=== PATIENT | male | born 1970 | race Caucasian/White ===

== ENCOUNTER 2024-01-17 18:23 | Inpatient (IN) | payer MEDICAID ==
[~2024-01-17] VITALS: Ht 172.7 cm; Wt 114.3 kg
[2024-01-17 18:26] VITALS: BP_SYST 154; PULSE 100; RESP 20; TEMP 100; O2SAT 98
[2024-01-17] MEDS: PIPERACILLIN/TAZO 3.375 GM in NS 50 ML IV ONE (18:51)
[2024-01-17] MEDS ORDERED: PIPERACILLIN/TAZOBACTAM 3.375 GM/VIAL (ZOSYN) IV ONE (18:52)
[2024-01-17] MEDS ORDERED: GABA-529 PO (18:53)
[2024-01-17] MEDS ORDERED: FOLI-43 PO (18:53)
[2024-01-17] MEDS ORDERED: FERR-69 PO (18:53)
[2024-01-17] MEDS ORDERED: NA P133E41 RC (18:53)
[2024-01-17] MEDS ORDERED: ASCO500T20 PO (18:53)
[2024-01-17] MEDS ORDERED: ACET325T PO (18:53)
[2024-01-17] MEDS ORDERED: BISA10SU61 RC (18:53)
[2024-01-17] MEDS ORDERED: LIP40 PO (18:53)
[2024-01-17] MEDS ORDERED: CLOP75TA32 PO (18:53)
[2024-01-17] MEDS ORDERED: FOLI0.8T42 PO (18:53)
[2024-01-17] MEDS ORDERED: HYDR12.585 PO (18:53)
[2024-01-17] MEDS ORDERED: TRAM50TA2 PO (18:53)
[2024-01-17] MEDS ORDERED: NIFE-129 PO (18:53)
[2024-01-17] MEDS ORDERED: ESCI10TA PO (18:53)
[2024-01-17] MEDS ORDERED: SUCR500T PO (18:53)
[2024-01-17] MEDS ORDERED: FAMO20TA8 PO (18:53)
[2024-01-17] MEDS ORDERED: CHOL30SP SL (18:53)
[2024-01-17] MEDS ORDERED: DEC1 PO (18:53)
[2024-01-17 19:13] LABS: BLOOD GAS PCO2 40.7 mmHg (32.0-45.0); BLOOD GAS PH 7.478 (7.350-7.450)
[2024-01-17 19:14] LABS: ABG O2 SAT% ESTIMATE 89.1 % (94.0-100.0); ALLEN'S TEST POSITIVE (P); BLOOD GAS BASE EXCESS 5.5 mmol/L (-3.0-3.0); BLOOD GAS HCO3 29.5 mmol/L (21.0-27.0)
[2024-01-17 19:20] LABS: BASOPHILS % (AUTO) 0.2 % (0.0-2.0); EOSINOPHILS % (AUTO) 0.2 % (0.0-4.0); HEMATOCRIT 31.5 % (36-54); HEMOGLOBIN 11.1 g/dL (14.0-18.0); LYMPHOCYTES # (AUTO) 0.7 K/uL (1.0-5.5); LYMPHOCYTES % (AUTO) 4.6 % (20.5-51.5); MEAN CORPUSCULAR HEMOGLOBIN 32 pg (27-31); MEAN CORPUSCULAR HGB CONC 35 % (32-36); MEAN CORPUSCULAR VOLUME 92 fL (79.0-98.0); MONOCYTES # (AUTO) 1.5 K/uL (0.0-1.0); MONOCYTES % (AUTO) 9.9 % (1.7-9.3); NEUTROPHILS # (AUTO) 13.2 K/uL (1.8-7.7); NEUTROPHILS % (AUTO) 85.1 % (40.0-70.0); PLATELET COUNT (AUTO) 464 K/uL (130-430); RED BLOOD CELL COUNT(AUTO) 3.43 MIL/uL (4.2-6.2); RED CELL DISTRIBUTION WIDTH 16.3 % (9.0-15.0); WHITE BLOOD COUNT (AUTO) 15.6 K/uL (4.8-10.8)
[2024-01-17 19:24] LABS: CALCIUM 10.3 mg/dL (8.4-11.0); CREATININE 4.58 mg/dL (0.55-1.30); POTASSIUM 4.3 mmol/L (3.5-5.1)
[2024-01-17 19:25] LABS: ERYTHROCYTE SEDIMENTATION RATE 92 MM/HR (0-15)
[2024-01-17 19:26] LABS: INR 1.1 (0.80-1.20); PROTHROMBIN TIME 10.9 SECS (9.5-12.5)
[2024-01-17 19:28] LABS: ALBUMIN 2.6 g/dL (3.4-4.8); BILIRUBIN,DIRECT 0.2 mg/dL (0.0-0.3); TOTAL BILIRUBIN 0.5 mg/dL (0.0-1.0); TOTAL PROTEIN, SERUM 7.8 g/dL (6.4-8.3)
[2024-01-17] MEDS: CLINDAMYCIN 600 mg/50mL D5W 50 ML IV ONE (19:56)
[2024-01-17] MEDS: NS 1,000 ML IV SCH (21:52)
[2024-01-18 01:47] VITALS: BP_SYST 139; PULSE 80; RESP 18; TEMP 97.9; O2SAT 100
[2024-01-18 05:59] LABS: BASOPHILS # (AUTO) 0.1 K/uL (0.0-0.2); BASOPHILS % (AUTO) 0.3 % (0.0-2.0); EOSINOPHILS % (AUTO) 0.1 % (0.0-4.0); HEMATOCRIT 31.3 % (36-54); HEMOGLOBIN 10.5 g/dL (14.0-18.0); LYMPHOCYTES # (AUTO) 1.1 K/uL (1.0-5.5); LYMPHOCYTES % (AUTO) 6.6 % (20.5-51.5); MEAN CORPUSCULAR HEMOGLOBIN 31 pg (27-31); MEAN CORPUSCULAR HGB CONC 34 % (32-36); MEAN CORPUSCULAR VOLUME 93 fL (79.0-98.0); MONOCYTES # (AUTO) 2.2 K/uL (0.0-1.0); MONOCYTES % (AUTO) 13.2 % (1.7-9.3); NEUTROPHILS % (AUTO) 79.8 % (40.0-70.0); PLATELET COUNT (AUTO) 462 K/uL (130-430); RED BLOOD CELL COUNT(AUTO) 3.37 MIL/uL (4.2-6.2); RED CELL DISTRIBUTION WIDTH 16.1 % (9.0-15.0); WHITE BLOOD COUNT (AUTO) 16.3 K/uL (4.8-10.8)
[2024-01-18 06:03] LABS: CALCIUM 10.4 mg/dL (8.4-11.0); CREATININE 5.39 mg/dL (0.55-1.30); POTASSIUM 4.3 mmol/L (3.5-5.1)
[2024-01-18 06:07] LABS: ALBUMIN 2.5 g/dL (3.4-4.8); TOTAL BILIRUBIN 0.5 mg/dL (0.0-1.0); TOTAL PROTEIN, SERUM 7.4 g/dL (6.4-8.3)
[2024-01-18] MEDS ORDERED: NALOXONE HCL 0.4 MG/ML AMP (NARCAN) IVP PRN (07:30)
[2024-01-18] MEDS ORDERED: MORPHINE 2 MG/ML INJ. SYRINGE IVP PRN (07:30)
[2024-01-18 07:45] VITALS: BP_SYST 150; PULSE 86; RESP 18; TEMP 96.7; O2SAT 92
[2024-01-18] MEDS: PIPERACILLIN/TAZOBACTAM 2.25 GM in NS 50 ML IV SCH (08:09)
[2024-01-18] MEDS: traMADol HCL HCL 50 MG TABLET (ULTRAM) PO PRN ×2 (09:15→23:44)
[2024-01-18 10:00] VITALS: O2SAT 98
[2024-01-18 11:05] VITALS: BP_SYST 117; PULSE 86; RESP 16; TEMP 98.2; O2SAT 94
[2024-01-18] MEDS: ASCORBIC ACID 500 MG TABLET PO ONE (11:51)
[2024-01-18] MEDS: NEPHROVITE, (FOLIC ACID/VITAMIN B COMP W-C 1 TAB) PO ONE (11:51)
[2024-01-18] MEDS: FERROUS SULFATE 325 MG TABLET.DR PO ONE (11:51)
[2024-01-18] MEDS: FOLIC ACID 1 MG TABLET PO ONE (11:52)
[2024-01-18] MEDS: CITALOPRAM HYDROBROMIDE 20 MG TABLET PO ONE (11:52)
[2024-01-18] MEDS: FAMOTIDINE 20 MG TABLET PO ONE (11:52)
[2024-01-18] MEDS: HYDROCHLOROTHIAZIDE 12.5 MG CAPSULE (HCTZ) PO ONE (11:54)
[2024-01-18] MEDS: NIFEdipine 30 MG TAB.ER.24 PO ONE (12:08)
[2024-01-18] MEDS: GABAPENTIN 100 MG CAPSULE PO SCH (13:24)
[2024-01-18 15:15] VITALS: BP_SYST 154; PULSE 84; RESP 16; TEMP 98; O2SAT 95
[2024-01-18] MEDS: CLOPIDOGREL BISULFATE 75 MG TABLET PO SCH (17:20)
[2024-01-18] MEDS: NACL 0.9% 1,000 ML IV SCH (17:42)
[2024-01-18 20:00] VITALS: BP_SYST 139; PULSE 78; RESP 18; TEMP 98.1; O2SAT 94
[2024-01-18] MEDS: NIFEdipine 30 MG TAB.ER.24 PO SCH (20:15)
[2024-01-18] MEDS: HYDROCHLOROTHIAZIDE 12.5 MG CAPSULE (HCTZ) PO SCH (20:16)
[2024-01-18] MEDS: ATORVASTATIN 20 MG TABLET PO SCH (20:16)
[2024-01-18] MEDS: BISACODYL 10 MG/SUPPOSITORY RC PRN (23:49)
[2024-01-19 00:33] VITALS: BP_SYST 157; PULSE 85; RESP 16; TEMP 98; O2SAT 95
[2024-01-19] MEDS: VANCOMYCIN HCL 1,500 MG in NS 250 ML IV ONE (05:11)
[2024-01-19] MEDS: VANCOMYCIN HCL 1000 MG/VIAL IV ONE (05:16)
[2024-01-19] MEDS: VANCOMYCIN HCL 500 MG/VIAL IV ONE (05:17)
[2024-01-19 05:43] LABS: CALCIUM 9.7 mg/dL (8.4-11.0); CREATININE 7.18 mg/dL (0.55-1.30); POTASSIUM 4.9 mmol/L (3.5-5.1)
[2024-01-19 07:26] LABS: BASOPHILS # (AUTO) 0.1 K/uL (0.0-0.2); BASOPHILS % (AUTO) 0.4 % (0.0-2.0); EOSINOPHILS # (AUTO) 0.2 K/uL (0.0-0.4); EOSINOPHILS % (AUTO) 0.9 % (0.0-4.0); HEMATOCRIT 30.8 % (36-54); LYMPHOCYTES # (AUTO) 1.6 K/uL (1.0-5.5); LYMPHOCYTES % (AUTO) 8.5 % (20.5-51.5); MEAN CORPUSCULAR HEMOGLOBIN 30 pg (27-31); MEAN CORPUSCULAR HGB CONC 32 % (32-36); MEAN CORPUSCULAR VOLUME 93 fL (79.0-98.0); MONOCYTES # (AUTO) 1.7 K/uL (0.0-1.0); NEUTROPHILS % (AUTO) 81.2 % (40.0-70.0); PLATELET COUNT (AUTO) 462 K/uL (130-430); RED CELL DISTRIBUTION WIDTH 16.1 % (9.0-15.0); WHITE BLOOD COUNT (AUTO) 18.4 K/uL (4.8-10.8)
[2024-01-19 08:00] VITALS: BP_SYST 142; PULSE 84; RESP 20; TEMP 98.2; O2SAT 92
[2024-01-19] MEDS: CITALOPRAM HYDROBROMIDE 20 MG TABLET PO SCH (09:29)
[2024-01-19] MEDS: ASCORBIC ACID 500 MG TABLET PO SCH (09:30)
[2024-01-19] MEDS: FOLIC ACID 1 MG TABLET PO SCH (09:30)
[2024-01-19] MEDS: FAMOTIDINE 20 MG TABLET PO SCH (09:31)
[2024-01-19] MEDS: NEPHROVITE, (FOLIC ACID/VITAMIN B COMP W-C 1 TAB) PO SCH (09:31)
[2024-01-19] MEDS: FERROUS SULFATE 325 MG TABLET.DR PO SCH (09:31)
[2024-01-19 10:38] VITALS: O2SAT 92
[2024-01-19 11:16] VITALS: BP_SYST 150; PULSE 85; RESP 16; TEMP 98.1; O2SAT 95
[2024-01-19 15:11] VITALS: BP_SYST 157; PULSE 81; RESP 16; TEMP 98.4; O2SAT 100
[2024-01-19] MEDS ORDERED: [UNRECOGNIZED DRUG - CODE] PO (15:28)
[2024-01-19] MEDS ORDERED: CHOL200075 PO (15:28)
[2024-01-19 17:34] VITALS: O2SAT 95
[2024-01-19] MEDS: CLOTRIMAZOLE/BETAMETHASONE 45 GM TOPICAL CREAM TP SCH (21:31)
[2024-01-20 08:10] VITALS: BP_SYST 145; PULSE 84; RESP 18; TEMP 97.4; O2SAT 97
[2024-01-20 09:52] VITALS: O2SAT 97
[2024-01-20 11:20] VITALS: BP_SYST 151; PULSE 82; RESP 16; TEMP 97; O2SAT 94
[2024-01-20 15:04] VITALS: BP_SYST 143; PULSE 86; RESP 17; TEMP 98.5; O2SAT 90
[2024-01-21 06:23] LABS: BASOPHILS # (AUTO) 0.1 K/uL (0.0-0.2); BASOPHILS % (AUTO) 0.5 % (0.0-2.0); EOSINOPHILS # (AUTO) 0.2 K/uL (0.0-0.4); EOSINOPHILS % (AUTO) 1.1 % (0.0-4.0); HEMATOCRIT 27.3 % (36-54); HEMOGLOBIN 9.2 g/dL (14.0-18.0); LYMPHOCYTES # (AUTO) 1.2 K/uL (1.0-5.5); MEAN CORPUSCULAR HEMOGLOBIN 31 pg (27-31); MEAN CORPUSCULAR HGB CONC 34 % (32-36); MEAN CORPUSCULAR VOLUME 92 fL (79.0-98.0); MONOCYTES # (AUTO) 1.6 K/uL (0.0-1.0); MONOCYTES % (AUTO) 8.3 % (1.7-9.3); NEUTROPHILS # (AUTO) 16.6 K/uL (1.8-7.7); NEUTROPHILS % (AUTO) 84.1 % (40.0-70.0); PLATELET COUNT (AUTO) 483 K/uL (130-430); RED BLOOD CELL COUNT(AUTO) 2.95 MIL/uL (4.2-6.2)
[2024-01-21 06:39] LABS: CALCIUM 9.5 mg/dL (8.4-11.0); CREATININE 6.52 mg/dL (0.55-1.30)
[2024-01-21 07:46] LABS: WHITE BLOOD COUNT (AUTO) 19.7 K/uL (4.8-10.8)
[2024-01-21 08:00] VITALS: BP_SYST 141; PULSE 85; RESP 18; TEMP 98.8; O2SAT 94
[2024-01-21] MEDS: VANCOMYCIN HCL 1.25 GM/NS 250 ML IV SCH (09:07)
[2024-01-21 12:00] VITALS: BP_SYST 130; PULSE 80; RESP 18; TEMP 98.8; O2SAT 96
[2024-01-21 16:00] VITALS: BP_SYST 149; PULSE 79; RESP 18; TEMP 98.3; O2SAT 97
[2024-01-21 20:00] VITALS: BP_SYST 152; PULSE 80; PULSE 95; RESP 20; TEMP 98.8; O2SAT 95
[2024-01-22] VITALS (8 sets, daily range): BP systolic 114–148; PULSE 70–89; RESP 18–20; TEMP 97.6–97.7; O2SAT 95–99
[2024-01-22 06:25] LABS: ALBUMIN 1.9 g/dL (3.4-4.8); CALCIUM 9.8 mg/dL (8.4-11.0); POTASSIUM 4.4 mmol/L (3.5-5.1); TOTAL BILIRUBIN 0.6 mg/dL (0.0-1.0); TOTAL PROTEIN, SERUM 6.4 g/dL (6.4-8.3)
[2024-01-22 06:49] LABS: CREATININE 7.84 mg/dL (0.55-1.30)
[2024-01-23] VITALS: BP_SYST 132; PULSE 86; RESP 18; TEMP 97.7; O2SAT 99
[2024-01-23 04:00] VITALS: BP_SYST 109; PULSE 83; RESP 18; TEMP 97.7; O2SAT 98
[2024-01-23 05:49] LABS: CALCIUM 9.9 mg/dL (8.4-11.0); CREATININE 5.92 mg/dL (0.55-1.30); POTASSIUM 3.9 mmol/L (3.5-5.1)
[2024-01-23 05:51] LABS: BASOPHILS # (AUTO) 0.1 K/uL (0.0-0.2); BASOPHILS % (AUTO) 0.4 % (0.0-2.0); EOSINOPHILS # (AUTO) 0.3 K/uL (0.0-0.4); EOSINOPHILS % (AUTO) 1.5 % (0.0-4.0); HEMATOCRIT 27.4 % (36-54); HEMOGLOBIN 9.3 g/dL (14.0-18.0); LYMPHOCYTES # (AUTO) 1.4 K/uL (1.0-5.5); LYMPHOCYTES % (AUTO) 6.8 % (20.5-51.5); MEAN CORPUSCULAR HEMOGLOBIN 31 pg (27-31); MEAN CORPUSCULAR HGB CONC 34 % (32-36); MEAN CORPUSCULAR VOLUME 93 fL (79.0-98.0); MONOCYTES # (AUTO) 1.7 K/uL (0.0-1.0); NEUTROPHILS # (AUTO) 17.4 K/uL (1.8-7.7); NEUTROPHILS % (AUTO) 83.3 % (40.0-70.0); PLATELET COUNT (AUTO) 570 K/uL (130-430); RED BLOOD CELL COUNT(AUTO) 2.95 MIL/uL (4.2-6.2); RED CELL DISTRIBUTION WIDTH 15.6 % (9.0-15.0); WHITE BLOOD COUNT (AUTO) 20.9 K/uL (4.8-10.8)
[2024-01-23 08:27] VITALS: O2SAT 95
[2024-01-23] MEDS ORDERED: MORPHINE 2 MG/ML INJ. SYRINGE IVP PRN ×2 (10:00)
[2024-01-23] MEDS ORDERED: NALOXONE HCL 0.4 MG/ML AMP (NARCAN) IVP PRN ×4 (10:00→21:45)
[2024-01-23 12:00] VITALS: BP_SYST 123; PULSE 84; RESP 16; TEMP 98; O2SAT 94
[2024-01-23] MEDS: ACETAMINOPHEN I.V. 1000 MG 100 ML IV ONE (15:26)
[2024-01-23] MEDS ORDERED: ONDANSETRON HCL 4 MG/2 ML VIAL IVP PRN (15:45)
[2024-01-23] MEDS ORDERED: NACL 0.9% 1,000 ML IV SCH (15:45)
[2024-01-23] MEDS ORDERED: NS 1000 ML IV.SOLN IV ONE (16:09)
[2024-01-23] MEDS ORDERED: WATER FOR IRRIGATION,STERILE 1,000 ML IRRIG.SOLN IR ONE (16:09)
[2024-01-23] MEDS ORDERED: NS IRRIG SOLN 1000 ML IR ONE (16:09)
[2024-01-23] MEDS ORDERED: MIDAZOLAM HCL 5 MG/ML VIAL (VERSED) IV ONE (16:09)
[2024-01-23] MEDS ORDERED: fentaNYL CITRATE/PF 100 MCG/2 ML AMP ONE (16:09)
[2024-01-23] MEDS ORDERED: ONDANSETRON HCL 4 MG/2 ML VIAL ONE (16:09)
[2024-01-23] MEDS ORDERED: ROCURONIUM BROMIDE 10 MG/ML (ZEMURON) ONE (16:09)
[2024-01-23] MEDS ORDERED: SUCCINYLCHOLINE CHLORIDE 20 MG/ML(QUELICIN) ONE (16:09)
[2024-01-23] MEDS ORDERED: PROPOFOL 200MG/ 20ML VIAL (DIPRIVAN) IV ONE (16:09)
[2024-01-23] MEDS ORDERED: DEXAMETHASONE SOD PHOSPHATE 4 MG/ML VIAL ONE (16:09)
[2024-01-23] MEDS ORDERED: SEVOFLURANE 15 MIN GAS INH ONE (16:09)
[2024-01-23] MEDS ORDERED: SUGAMMADEX SODIUM 200 MG/2 ML VIAL IV ONE (16:09)
[2024-01-23] MEDS: HYDROmorphone 1 MG/ML INJ. CARTRIDGE ONE (16:34)
[2024-01-23] MEDS: HYDROmorphone 1 MG/ML INJ. CARTRIDGE IVP PRN (16:35)
[2024-01-23] MEDS: EPOETIN ALFA-EPBX 20,000 UNITS/ML VIAL SUBCUT ONE (17:45)
[2024-01-23] MEDS: NACL 0.9% 1,000 ML IV SCH (19:15)
[2024-01-23 20:00] VITALS: BP_SYST 141; PULSE 82; RESP 20; TEMP 97.6; O2SAT 96; O2SAT 97
[2024-01-23] MEDS: HYDROmorphone 1 MG/ML INJ. CARTRIDGE IM PRN (23:45)
[2024-01-24] VITALS (7 sets, daily range): BP systolic 114–143; PULSE 68–95; RESP 16–20; TEMP 97.8–98.8; O2SAT 93–98
[2024-01-25] VITALS: BP_SYST 104; PULSE 86; RESP 20; TEMP 98.8; O2SAT 91
[2024-01-25 08:02] VITALS: BP_SYST 115; PULSE 78; RESP 17; TEMP 98.3; O2SAT 96
[2024-01-25 11:27] VITALS: BP_SYST 121; PULSE 84; RESP 18; TEMP 97.4; O2SAT 93
[2024-01-25 16:42] VITALS: BP_SYST 143; PULSE 85; RESP 18; TEMP 97.4; O2SAT 93
[2024-01-25 20:00] VITALS: BP_SYST 128; PULSE 94; RESP 18; TEMP 97.6; O2SAT 94
[2024-01-26 00:05] VITALS: BP_SYST 126; PULSE 87; RESP 18; TEMP 98.3; O2SAT 94
[2024-01-26 05:59] LABS: BASOPHILS # (AUTO) 0.1 K/uL (0.0-0.2); BASOPHILS % (AUTO) 0.3 % (0.0-2.0); EOSINOPHILS # (AUTO) 0.1 K/uL (0.0-0.4); EOSINOPHILS % (AUTO) 0.7 % (0.0-4.0); HEMATOCRIT 24.7 % (36-54); HEMOGLOBIN 8.1 g/dL (14.0-18.0); LYMPHOCYTES # (AUTO) 1.4 K/uL (1.0-5.5); LYMPHOCYTES % (AUTO) 6.6 % (20.5-51.5); MEAN CORPUSCULAR HEMOGLOBIN 31 pg (27-31); MEAN CORPUSCULAR HGB CONC 33 % (32-36); MEAN CORPUSCULAR VOLUME 95 fL (79.0-98.0); MONOCYTES # (AUTO) 1.8 K/uL (0.0-1.0); MONOCYTES % (AUTO) 8.2 % (1.7-9.3); NEUTROPHILS # (AUTO) 18.1 K/uL (1.8-7.7); NEUTROPHILS % (AUTO) 84.2 % (40.0-70.0); PLATELET COUNT (AUTO) 581 K/uL (130-430); RED BLOOD CELL COUNT(AUTO) 2.61 MIL/uL (4.2-6.2)
[2024-01-26 06:21] LABS: CALCIUM 10.1 mg/dL (8.4-11.0); CREATININE 7.28 mg/dL (0.55-1.30); POTASSIUM 4.4 mmol/L (3.5-5.1)
[2024-01-26 07:02] LABS: VANCOMYCIN,RANDOM 31.7 ug/mL (20.0-30.0)
[2024-01-26 07:53] VITALS: BP_SYST 136; PULSE 82; RESP 18; TEMP 97.8; O2SAT 98
[2024-01-26 07:56] LABS: WHITE BLOOD COUNT (AUTO) 21.5 K/uL (4.8-10.8)
[2024-01-26 10:06] VITALS: O2SAT 97
[2024-01-26 11:10] VITALS: BP_SYST 135; PULSE 80; RESP 15; TEMP 98.4; O2SAT 93
[2024-01-26] MEDS: SULFAMETHOXAZOLE/TRIMETHOPR DS 1 TABLET PO ONE (14:26)
[2024-01-26 15:14] VITALS: BP_SYST 99; PULSE 82; RESP 16; TEMP 98.1; O2SAT 97
[2024-01-26] MEDS ORDERED: SULFAMETHOXAZOLE/TRIMETHOPR DS 1 TABLET PO SCH (21:00)
[2024-01-26 22:02] VITALS: BP_SYST 127; PULSE 90; RESP 18; TEMP 98.4; O2SAT 92
[2024-01-27] VITALS (10 sets, daily range): BP systolic 119–127; PULSE 86–111; RESP 15–18; TEMP 96.8–98.6; O2SAT 84–99
[2024-01-27 05:47] LABS: HEMATOCRIT 23.6 % (36-54); HEMOGLOBIN 7.8 g/dL (14.0-18.0); MEAN CORPUSCULAR HEMOGLOBIN 31 pg (27-31); MEAN CORPUSCULAR HGB CONC 33 % (32-36); MEAN CORPUSCULAR VOLUME 95 fL (79.0-98.0); PLATELET COUNT (AUTO) 579 K/uL (130-430); RED CELL DISTRIBUTION WIDTH 15.8 % (9.0-15.0); WHITE BLOOD COUNT (AUTO) 24.1 K/uL (4.8-10.8)
[2024-01-27 06:14] LABS: CALCIUM 10.3 mg/dL (8.4-11.0); POTASSIUM 4.5 mmol/L (3.5-5.1)
[2024-01-27 06:38] LABS: CREATININE 8.48 mg/dL (0.55-1.30)
[2024-01-27 07:48] LABS: BAND % (MANUAL) 1 % (0-6); BASOPHILS % (MANUAL) 0 % (0-2); EOSINOPHILS % (MANUAL) 1 % (0-7); LYMPHOCYTES % (MANUAL) 4 % (20-46)
[2024-01-27 07:49] LABS: MONOCYTES % (MANUAL) 8 % (0-11); PLATELET ESTIMATE INCREASED (ADEQUATE)
[2024-01-27] MEDS: levalbuterol HCL 0.63 MG/3 ML VIAL.NEB INH SCH (13:00)
[2024-01-28] VITALS (27 sets, daily range): BP systolic 98–134; PULSE 79–95; RESP 10–23; TEMP 97.8–98.9; O2SAT 84–100
[2024-01-28 05:44] LABS: BASOPHILS # (AUTO) 0.1 K/uL (0.0-0.2); BASOPHILS % (AUTO) 0.3 % (0.0-2.0); EOSINOPHILS # (AUTO) 0.2 K/uL (0.0-0.4); EOSINOPHILS % (AUTO) 0.9 % (0.0-4.0); HEMATOCRIT 22.2 % (36-54); HEMOGLOBIN 7.2 g/dL (14.0-18.0); LYMPHOCYTES # (AUTO) 0.9 K/uL (1.0-5.5); MEAN CORPUSCULAR HEMOGLOBIN 31 pg (27-31); MEAN CORPUSCULAR HGB CONC 33 % (32-36); MEAN CORPUSCULAR VOLUME 96 fL (79.0-98.0); MONOCYTES # (AUTO) 1.6 K/uL (0.0-1.0); MONOCYTES % (AUTO) 6.6 % (1.7-9.3); NEUTROPHILS # (AUTO) 20.9 K/uL (1.8-7.7); NEUTROPHILS % (AUTO) 88.2 % (40.0-70.0); PLATELET COUNT (AUTO) 567 K/uL (130-430); RED BLOOD CELL COUNT(AUTO) 2.32 MIL/uL (4.2-6.2); RED CELL DISTRIBUTION WIDTH 16.3 % (9.0-15.0); WHITE BLOOD COUNT (AUTO) 23.7 K/uL (4.8-10.8)
[2024-01-28 05:45] LABS: ALBUMIN 1.7 g/dL (3.4-4.8); CREATININE 6.6 mg/dL (0.55-1.30); TOTAL BILIRUBIN 0.4 mg/dL (0.0-1.0); TOTAL PROTEIN, SERUM 6.4 g/dL (6.4-8.3); VANCOMYCIN,RANDOM 22.9 ug/mL (20.0-30.0)
[2024-01-28 13:55] LABS: ABG O2 SAT% ESTIMATE 92.4 % (94.0-100.0); BLOOD GAS BASE EXCESS 2.7 mmol/L (-3.0-3.0); BLOOD GAS HCO3 27.9 mmol/L (21.0-27.0); BLOOD GAS PH 7.411 (7.350-7.450)
[2024-01-28 13:59] LABS: ALLEN'S TEST POSITIVE (P); BLOOD GAS PO2 63.4 mmHg (75.0-100.0)
[2024-01-28] MEDS: MEROPENEM 500 MG in NS 50 ML IV SCH (15:26)
[2024-01-28] MEDS: BUDESONIDE 0.5 MG/2 ML AMPUL.NEB INH SCH (20:03)
[2024-01-28] MEDS: DOCUSATE SODIUM 100 MG CAPSULE PO SCH (22:03)
[2024-01-29] VITALS (31 sets, daily range): BP systolic 102–146; PULSE 80–92; RESP 10–23; TEMP 97.7–98.6; O2SAT 90–99
[2024-01-29 04:43] LABS: BASOPHILS # (AUTO) 0.1 K/uL (0.0-0.2); BASOPHILS % (AUTO) 0.6 % (0.0-2.0); EOSINOPHILS # (AUTO) 0.5 K/uL (0.0-0.4); EOSINOPHILS % (AUTO) 2.8 % (0.0-4.0); HEMATOCRIT 22.3 % (36-54); HEMOGLOBIN 7.3 g/dL (14.0-18.0); LYMPHOCYTES # (AUTO) 1.2 K/uL (1.0-5.5); LYMPHOCYTES % (AUTO) 7.1 % (20.5-51.5); MEAN CORPUSCULAR HEMOGLOBIN 31 pg (27-31); MEAN CORPUSCULAR HGB CONC 33 % (32-36); MEAN CORPUSCULAR VOLUME 95 fL (79.0-98.0); MONOCYTES # (AUTO) 1.2 K/uL (0.0-1.0); MONOCYTES % (AUTO) 6.8 % (1.7-9.3); NEUTROPHILS # (AUTO) 14.5 K/uL (1.8-7.7); NEUTROPHILS % (AUTO) 82.7 % (40.0-70.0); PLATELET COUNT (AUTO) 581 K/uL (130-430); RED BLOOD CELL COUNT(AUTO) 2.34 MIL/uL (4.2-6.2); WHITE BLOOD COUNT (AUTO) 17.6 K/uL (4.8-10.8)
[2024-01-29 05:13] LABS: CALCIUM 10.4 mg/dL (8.4-11.0); POTASSIUM 4.4 mmol/L (3.5-5.1); VANCOMYCIN,TROUGH 21.7 ug/mL (10.0-20.0)
[2024-01-29 05:34] LABS: CREATININE 7.82 mg/dL (0.55-1.30)
[2024-01-30] VITALS (24 sets, daily range): BP systolic 108–152; PULSE 74–94; RESP 11–22; TEMP 97.8–98.7; O2SAT 94–98
[2024-01-30 04:50] LABS: BASOPHILS # (AUTO) 0.1 K/uL (0.0-0.2); BASOPHILS % (AUTO) 0.7 % (0.0-2.0); EOSINOPHILS # (AUTO) 0.6 K/uL (0.0-0.4); HEMATOCRIT 22.9 % (36-54); HEMOGLOBIN 7.6 g/dL (14.0-18.0); LYMPHOCYTES # (AUTO) 1.2 K/uL (1.0-5.5); LYMPHOCYTES % (AUTO) 6.5 % (20.5-51.5); MEAN CORPUSCULAR HEMOGLOBIN 31 pg (27-31); MEAN CORPUSCULAR HGB CONC 33 % (32-36); MEAN CORPUSCULAR VOLUME 95 fL (79.0-98.0); MONOCYTES # (AUTO) 1.2 K/uL (0.0-1.0); MONOCYTES % (AUTO) 6.4 % (1.7-9.3); NEUTROPHILS # (AUTO) 15.4 K/uL (1.8-7.7); NEUTROPHILS % (AUTO) 83.4 % (40.0-70.0); PLATELET COUNT (AUTO) 646 K/uL (130-430); RED BLOOD CELL COUNT(AUTO) 2.42 MIL/uL (4.2-6.2); RED CELL DISTRIBUTION WIDTH 16.1 % (9.0-15.0); WHITE BLOOD COUNT (AUTO) 18.4 K/uL (4.8-10.8)
[2024-01-30 04:57] LABS: CALCIUM 10.2 mg/dL (8.4-11.0); CREATININE 6.02 mg/dL (0.55-1.30); POTASSIUM 4.3 mmol/L (3.5-5.1)
[2024-01-30] MEDS: VANCOMYCIN HCL 1.25 GM/NS 250 ML IV SCH (08:42)
[2024-01-31] VITALS (12 sets, daily range): BP systolic 124–136; PULSE 74–98; RESP 16–20; TEMP 98–99.1; O2SAT 92–98
[2024-01-31 05:20] LABS: BASOPHILS # (AUTO) 0.1 K/uL (0.0-0.2); BASOPHILS % (AUTO) 0.5 % (0.0-2.0); EOSINOPHILS # (AUTO) 0.6 K/uL (0.0-0.4); EOSINOPHILS % (AUTO) 3.4 % (0.0-4.0); HEMATOCRIT 22.6 % (36-54); HEMOGLOBIN 7.5 g/dL (14.0-18.0); LYMPHOCYTES # (AUTO) 1.1 K/uL (1.0-5.5); LYMPHOCYTES % (AUTO) 7.1 % (20.5-51.5); MEAN CORPUSCULAR HEMOGLOBIN 31 pg (27-31); MEAN CORPUSCULAR HGB CONC 33 % (32-36); MEAN CORPUSCULAR VOLUME 95 fL (79.0-98.0); MONOCYTES % (AUTO) 6.4 % (1.7-9.3); NEUTROPHILS # (AUTO) 13.4 K/uL (1.8-7.7); NEUTROPHILS % (AUTO) 82.6 % (40.0-70.0); PLATELET COUNT (AUTO) 610 K/uL (130-430); RED BLOOD CELL COUNT(AUTO) 2.37 MIL/uL (4.2-6.2); RED CELL DISTRIBUTION WIDTH 16.4 % (9.0-15.0); WHITE BLOOD COUNT (AUTO) 16.2 K/uL (4.8-10.8)
[2024-01-31 05:39] LABS: CALCIUM 10.4 mg/dL (8.4-11.0); CREATININE 7.24 mg/dL (0.55-1.30); POTASSIUM 4.6 mmol/L (3.5-5.1)
[2024-02-01] VITALS (13 sets, daily range): BP systolic 122–139; PULSE 84–98; RESP 18–20; TEMP 97.7–99.2; O2SAT 41–100
[2024-02-01 07:15] LABS: BASOPHILS # (AUTO) 0.1 K/uL (0.0-0.2); BASOPHILS % (AUTO) 0.7 % (0.0-2.0); EOSINOPHILS # (AUTO) 0.5 K/uL (0.0-0.4); EOSINOPHILS % (AUTO) 3.5 % (0.0-4.0); HEMATOCRIT 22.2 % (36-54); HEMOGLOBIN 7.3 g/dL (14.0-18.0); LYMPHOCYTES % (AUTO) 7.6 % (20.5-51.5); MEAN CORPUSCULAR HEMOGLOBIN 31 pg (27-31); MEAN CORPUSCULAR HGB CONC 33 % (32-36); MEAN CORPUSCULAR VOLUME 95 fL (79.0-98.0); MONOCYTES # (AUTO) 1.1 K/uL (0.0-1.0); MONOCYTES % (AUTO) 8.4 % (1.7-9.3); NEUTROPHILS # (AUTO) 10.4 K/uL (1.8-7.7); NEUTROPHILS % (AUTO) 79.8 % (40.0-70.0); PLATELET COUNT (AUTO) 565 K/uL (130-430); RED BLOOD CELL COUNT(AUTO) 2.34 MIL/uL (4.2-6.2); RED CELL DISTRIBUTION WIDTH 15.9 % (9.0-15.0)
[2024-02-01 07:21] LABS: CALCIUM 9.9 mg/dL (8.4-11.0); CREATININE 5.87 mg/dL (0.55-1.30); POTASSIUM 4.4 mmol/L (3.5-5.1)
[2024-02-02] VITALS (18 sets, daily range): BP systolic 131–148; PULSE 80–88; RESP 18–20; TEMP 97.5–99.1; O2SAT 92–97
[2024-02-03] VITALS (16 sets, daily range): BP systolic 125–145; PULSE 81–90; RESP 16–20; TEMP 97.7–98.7; O2SAT 92–99
[2024-02-04] VITALS (13 sets, daily range): BP systolic 117–146; PULSE 85–96; RESP 16–19; TEMP 97.5–98.8; O2SAT 93–100
[2024-02-04] MEDS: BUDESONIDE 0.5 MG/2 ML AMPUL.NEB ONE (08:37)
[2024-02-04] MEDS: traMADol HCL HCL 50 MG TABLET (ULTRAM) PO PRN (12:25)
[2024-02-04 16:21] LABS: CALCIUM 9.3 mg/dL (8.4-11.0); CREATININE 6.1 mg/dL (0.55-1.30); POTASSIUM 4.6 mmol/L (3.5-5.1)
[2024-02-04 16:34] LABS: BASOPHILS # (AUTO) 0.1 K/uL (0.0-0.2); BASOPHILS % (AUTO) 0.8 % (0.0-2.0); EOSINOPHILS # (AUTO) 0.5 K/uL (0.0-0.4); EOSINOPHILS % (AUTO) 4.5 % (0.0-4.0); HEMOGLOBIN 7.2 g/dL (14.0-18.0); LYMPHOCYTES # (AUTO) 0.8 K/uL (1.0-5.5); LYMPHOCYTES % (AUTO) 7.2 % (20.5-51.5); MEAN CORPUSCULAR HEMOGLOBIN 32 pg (27-31); MEAN CORPUSCULAR HGB CONC 34 % (32-36); MEAN CORPUSCULAR VOLUME 94 fL (79.0-98.0); MONOCYTES # (AUTO) 0.9 K/uL (0.0-1.0); MONOCYTES % (AUTO) 8.8 % (1.7-9.3); NEUTROPHILS # (AUTO) 8.3 K/uL (1.8-7.7); NEUTROPHILS % (AUTO) 78.7 % (40.0-70.0); PLATELET COUNT (AUTO) 466 K/uL (130-430); RED BLOOD CELL COUNT(AUTO) 2.26 MIL/uL (4.2-6.2); RED CELL DISTRIBUTION WIDTH 15.7 % (9.0-15.0); WHITE BLOOD COUNT (AUTO) 10.5 K/uL (4.8-10.8)
[2024-02-04 16:54] LABS: HEMATOCRIT 21.2 % (36-54)
[2024-02-05] VITALS (15 sets, daily range): BP systolic 133–174; PULSE 69–92; RESP 18–20; TEMP 98.1–98.6; O2SAT 88–100
[2024-02-05 09:34] LABS: HEMOGLOBIN 8.9 g/dL (14.0-18.0)
[2024-02-05] MEDS: EPOETIN ALFA-EPBX 4,000 UNITS/ML VIAL SUBCUT SCH (17:43)
== END 2024-02-05 20:50 | DRG 710 ==
LOC: SED 18:23 → STU 22:13 → SMU 01-25 19:54 → SIC 01-28 02:31 → STU 01-30 18:03 → SMU 02-03 20:00
PROVIDERS: ADMIT Internal Medicine; ATTEND Internal Medicine
PROC: 5A1D70Z Performance of Urinary Filtration, Intermittent, Less than 6 Hours Per Day (ICD-10-PCS; 2024-01-20)
PROC: 5A1D70Z Performance of Urinary Filtration, Intermittent, Less than 6 Hours Per Day (ICD-10-PCS; 2024-01-22)
PROC: 0Y6H0Z3 Detachment at Right Lower Leg, Low, Open Approach (ICD-10-PCS; principal; 2024-01-23 14:05)
PROC: 5A1D70Z Performance of Urinary Filtration, Intermittent, Less than 6 Hours Per Day (ICD-10-PCS; 2024-01-24)
PROC: 5A1D70Z Performance of Urinary Filtration, Intermittent, Less than 6 Hours Per Day (ICD-10-PCS; 2024-01-27)
PROC: 5A09357 Assistance with Respiratory Ventilation, Less than 24 Consecutive Hours, Continuous Positive Airway Pressure (ICD-10-PCS; 2024-01-29)
PROC: 5A1D70Z Performance of Urinary Filtration, Intermittent, Less than 6 Hours Per Day (ICD-10-PCS; 2024-01-29)
PROC: 5A09357 Assistance with Respiratory Ventilation, Less than 24 Consecutive Hours, Continuous Positive Airway Pressure (ICD-10-PCS; 2024-01-30)
PROC: 5A0935A Assistance with Respiratory Ventilation, Less than 24 Consecutive Hours, High Flow/Velocity Cannula (ICD-10-PCS; 2024-01-30)
PROC: 5A1D70Z Performance of Urinary Filtration, Intermittent, Less than 6 Hours Per Day (ICD-10-PCS; 2024-01-31)
PROC: 5A09357 Assistance with Respiratory Ventilation, Less than 24 Consecutive Hours, Continuous Positive Airway Pressure (ICD-10-PCS; 2024-02-01)
PROC: 5A09357 Assistance with Respiratory Ventilation, Less than 24 Consecutive Hours, Continuous Positive Airway Pressure (ICD-10-PCS; 2024-02-02)
PROC: 5A09357 Assistance with Respiratory Ventilation, Less than 24 Consecutive Hours, Continuous Positive Airway Pressure (ICD-10-PCS; 2024-02-03)
PROC: 5A1D70Z Performance of Urinary Filtration, Intermittent, Less than 6 Hours Per Day (ICD-10-PCS; 2024-02-03)
PROC: 30233N1 Transfusion of Nonautologous Red Blood Cells into Peripheral Vein, Percutaneous Approach (ICD-10-PCS; 2024-02-04)
PROC: 5A09357 Assistance with Respiratory Ventilation, Less than 24 Consecutive Hours, Continuous Positive Airway Pressure (ICD-10-PCS; 2024-02-05)
PROC: 5A1D70Z Performance of Urinary Filtration, Intermittent, Less than 6 Hours Per Day (ICD-10-PCS; 2024-02-05)
DX: A41.9 Sepsis, unspecified organism (principal); J96.21 Acute and chronic respiratory failure with hypoxia; E43 Unspecified severe protein-calorie malnutrition; I13.2 Hypertensive heart and chronic kidney disease with heart failure and with stage 5 chronic kidney disease, or end stage renal disease; I42.9 Cardiomyopathy, unspecified; D63.1 Anemia in chronic kidney disease; I69.351 Hemiplegia and hemiparesis following cerebral infarction affecting right dominant side; J18.9 Pneumonia, unspecified organism; E11.621 Type 2 diabetes mellitus with foot ulcer; N18.6 End stage renal disease; L03.115 Cellulitis of right lower limb; E11.22 Type 2 diabetes mellitus with diabetic chronic kidney disease; I50.9 Heart failure, unspecified; E11.51 Type 2 diabetes mellitus with diabetic peripheral angiopathy without gangrene; B35.3 Tinea pedis; E66.01 Morbid (severe) obesity due to excess calories; Y95 Nosocomial condition; J44.0 Chronic obstructive pulmonary disease with (acute) lower respiratory infection; Z99.2 Dependence on renal dialysis; Z88.5 Allergy status to narcotic agent; Z68.38 Body mass index [BMI] 38.0-38.9, adult; Z87.891 Personal history of nicotine dependence
CPT/HCPCS: 36415; 36600; 71045; 71250-TC; 73721; 78580; 80048; 80053; 80076; 80202; 82803; 82948; 83051; 83605; 83880; 85007; 85014; 85025; 85027; 85610; 85651; 85730; 86886; 86900; 86901; 86920; 87040; 87070; 87075; 87081; 88307; 88311; 90935; 90937; 93005; 93306; 93922; 93970; 94640; 94660; 94760; 96365; 96367; 97110-GP; 97530-GP; 99285; A9540; G0378; J0131; J0330; J1100; J1170; J2185; J2250; J2270; J2405; J2543; J2704; J3010; J3370; J3490; J7030; J7050; J7614; J7626; P9021; Q5106